=== PATIENT | male | born 1995 | race American Indian/Alaskan Native ===

== ENCOUNTER 2017-02-25 22:27 | Emergency (ER) | payer OTHER ==
[2017-02-26] MEDS ORDERED: MOTRIN PO ONE (04:45)
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
[2017-02-26 06:50] VITALS: BP 120/77
== END 2017-02-26 06:50 | disposition home or self-care (01) ==
LOC: ED 22:27
DX: S16.1XXA Strain of muscle, fascia and tendon at neck level, initial encounter (principal); S09.8XXA Other specified injuries of head, initial encounter; G44.311 Acute post-traumatic headache, intractable; V89.2XXA Person injured in unspecified motor-vehicle accident, traffic, initial encounter; Y93.89 Activity, other specified; Y92.89 Other specified places as the place of occurrence of the external cause; Y99.8 Other external cause status
CPT/HCPCS: 70450; 70490